=== PATIENT | female | born 1950 | race African-American/Black ===

== ENCOUNTER → 2016-04-21 | Outpatient (CLI) | payer OTHER ==
[~2016-04-21] MED LIST: ALPRAZOLAM1 MG PO; FLONASE16 G1 BOTH NARES; HYDROCHLOROTHIA25 MG PO; LISINOPRIL20 MG PO; MOBIC7.5 MG PO; OMEPRAZOLE20 MG PO; XARTEMIS XR 7.1 EACH PO
== END | disposition home or self-care (01) ==
DX: M17.12 Unilateral primary osteoarthritis, left knee (principal)
CPT/HCPCS: 97110 GP; 97150 GO; 97161 GP; 97165 GO; G8978 GP; G8979 GP; G8980 GP; G8984 GO; G8985 GO; G8986 GO

== ENCOUNTER 2016-05-12 09:30 | Inpatient (IN) | payer OTHER ==
[~2016-05-12] VITALS: Ht 162.6 cm; Wt 94.8 kg
[~2016-05-12 09:30] MED LIST changes: +IRON325 M1 PO; +MS CONTIN,ORAMO15 M1 PO; +PERCOCET 5/31 TABLET PO; +XANAX0.5 MG PO; +ZYRTEC10 M2 PO
[2016-05-12 11:47] VITALS: BP 123/73
[2016-05-12 17:59] LABS: HEMATOCRIT 34.7 % (36.0-46.0); MCH 31.4 PG (29.0-34.0); MEAN PLAT.VOLUME 9.4 uM^3 (9.5-12.4); PLATELET COUNT 178 K/uL (156-360); RBC DIS.WIDTH-CV 13.5 % (11.8-14.6); RBC DIS.WIDTH-SD 48.7 % (39-53); RED BLOOD COUNT 3.54 M/uL (3.80-5.20); WHITE BLOOD COUNT 4.5 K/uL (4.1-10.2)
[2016-05-12 20:00] VITALS: BP 151/84
[2016-05-12 21:59] VITALS: BP 184/89
[2016-05-13] VITALS (7 sets, daily range): BP systolic 137–184; BP diastolic 61–91
[2016-05-13 06:08] LABS: HEMATOCRIT 38.3 % (36.0-46.0)
[2016-05-13 06:25] LABS: ANION GAP 8 MEQ/L (2-14); CHLORIDE 104 MEQ/L (99-109); GFR ESTIMATE (CALCULATED) > 59 mL/min/; GLUCOSE 122 mg/dL (70-99); POTASSIUM 4.1 MEQ/L (3.7-5.4); SAMPLE HEMOLYSIS CHECK 0; SAMPLE ICTERIC CHECK 0; SAMPLE LIPEMIA CHECK 0; SODIUM 136 MEQ/L (136-147); UREA NITROGEN (BUN) 11 mg/dL (9-23)
[2016-05-14 00:27] VITALS: BP 129/72
[2016-05-14 04:24] VITALS: BP 100/60
[2016-05-14 04:59] LABS: HEMATOCRIT 35.5 % (36.0-46.0); MCV 97.3 FL (83-99)
[2016-05-14 08:30] VITALS: BP 145/67
[2016-05-14] MEDS ORDERED: CELECOXIB200 MG PO (08:45)
[2016-05-14] MEDS ORDERED: LOVENOX40 MG/0.4 SC (08:45)
[2016-05-14] MEDS ORDERED: SENNA PLUS TAB1 EACH PO (08:45)
[2016-05-14 12:07] VITALS: BP 127/60
[2016-05-14] MEDS ORDERED: PERCOCET 10/1 TABLET PO (14:56)
[2016-05-14 14:59] VITALS: BP 104/60
== END 2016-05-14 15:30 | DRG 470 ==
LOC: 2SOUTH 09:30 → 3WEST 19:44
PROVIDERS: Orthopaedic Surgery
PROC: 0SRD0J9 Replacement of Left Knee Joint with Synthetic Substitute, Cemented, Open Approach (ICD-10-PCS; principal; 2016-05-12)
DX: M17.12 Unilateral primary osteoarthritis, left knee (principal); G89.18 Other acute postprocedural pain; I10 Essential (primary) hypertension; F41.9 Anxiety disorder, unspecified; G89.29 Other chronic pain; M54.9 Dorsalgia, unspecified; K21.9 Gastro-esophageal reflux disease without esophagitis; Z79.891 Long term (current) use of opiate analgesic
CPT/HCPCS: 73560; 80048; 85014; 85018; 85027; J0131; J0690; J1170; J1650; J2250; J2405; J7050